=== PATIENT | female | born 1955 | race Two or more races ===

== ENCOUNTER 2023-07-08 21:04 | Emergency (ER) | payer OTHER ==
[~2023-07-08] VITALS: Ht 170.2 cm; Wt 100.0 kg
[2023-07-08 21:25] VITALS: PULSE 82; RESP 13; TEMP 98.7; O2SAT 95
[2023-07-08 22:04] LABS: Basophils # (auto) 0 10 ^3/uL (0-0.2); Basophils % (auto) 0.2 % (0.0-2.0); Eosinophils # (auto) 0.1 10 ^3/uL (0-0.8); Eosinophils % (auto) 0.5 % (0.0-7.0); Hematocrit 39.5 % (36.0-46.0); Hemoglobin 12.7 g/dL (12.2-16.2); Lymphocytes # (auto) 5.2 10 ^3/uL (0.4-5.4); Lymphocytes % (auto) 40.7 % (10.0-50.0); Mean Corpuscular Hemoglobin 29.3 pg (28.0-32.0); Mean Corpuscular Hgb Conc. 32.3 g/dL (32.0-36.0); Mean Corpuscular Volume 90.8 fL (80.0-100.0); Monocytes # (auto) 0.9 10 ^3/uL (0-1.3); Monocytes % (auto) 7.2 % (0.0-12.0); Neutrophils # (auto) 6.6 10 ^3/uL (1.6-8.6); Neutrophils % (auto) 51.4 % (37.0-80.0); Nucleated Red Blood Cells % 0.1 %; Red Blood Cells 4.35 10^6/uL (4.0-5.20); Red Cell Distribution Width 15.2 % (11.8-14.3); White Blood Cell 12.8 10^3/uL (4.4-10.8)
[2023-07-08 22:16] LABS: Lactic Acid w/Reflex 2.4 mmol/L (0.4-2.0)
[2023-07-08 22:18] LABS: Alanine Aminotransferase 18 U/L (7-40); Albumin 4.3 g/dL (3.2-4.8); Alkaline Phosphatase 98 U/L (46-116); Anion Gap 7.6 (5-15); Aspartate Aminotransferase 13 U/L (13-40); Bilirubin, Total 0.2 mg/dL (0.2-1.0); Blood Urea Nitrogen 11 mg/dL (9-23); Calcium 9.3 mg/dL (8.7-10.4); Carbon Dioxide 27.4 mmol/L (20-30); Chloride 102 mmol/L (98-107); Glucose 195 mg/dL (74-106); Potassium 3.4 mmol/L (3.5-5.1); Sodium 137 mmol/L (136-145); Total Protein 7.4 g/dL (5.7-8.2)
[2023-07-08 22:18] LABS: Urine Bacteria FEW /hpf (None Seen); Urine Blood Negative /uL (Negative); Urine Clarity Clear (Clear); Urine Color Yellow (Yellow); Urine Hyaline Cast FEW /lpf (0 - 2); Urine Protein, UAD Negative (Negative); Urine Specific Gravity 1.019 (1.001-1.035); Urine Urobilinogen Normal (Negative); Urine WBC 4 /hpf (0 - 5); Urine pH 5.5 (5.0-8.0)
[2023-07-09] MEDS ORDERED: cefTRIAXone 1GM/50ML D5W 50 ML IV ONE
[2023-07-09] MEDS ORDERED: LORazepam 2MG/ML-1ML VIAL IV ONE ×2
[2023-07-09] MEDS ORDERED: SODIUM CHLORIDE 0.9% 1,000 ML IV ONE
[2023-07-09] MEDS ORDERED: ONDANSETRON HCL 4 MG/2 ML VIAL IV ONE
[2023-07-09 02:19] VITALS: BP 120/60; PULSE 78; RESP 19; O2SAT 94
== END 2023-07-09 03:38 | disposition home or self-care (01) ==
LOC: ER 21:04 → EDBD 21:04 → ER 07-09 03:38
DX: H81.13 Benign paroxysmal vertigo, bilateral (principal); N39.0 Urinary tract infection, site not specified; I10 Essential (primary) hypertension
CPT/HCPCS: 36415; 70450; 71045; 80053; 81001; 83605; 83880; 84484; 85025; 93005; 96365; 96375; 99285; J0696; J2060